=== PATIENT | male | born 1995 | race African-American/Black ===

== ENCOUNTER 2019-01-12 20:33 | Emergency (ER) | payer OTHER, MEDICAID ==
[~2019-01-12] VITALS: Ht 182.9 cm; Wt 73.0 kg
[2019-01-12] MEDS ORDERED: KETOROLAC 60MG/2ML VIAL IM ONE (21:30)
[2019-01-12] MEDS ORDERED: MORPHINE SULFATE 10 MG/ML CPJ IM ONE (21:30)
[2019-01-12] MEDS ORDERED: ONDANSETRON 4MG ODT PO ONE (21:30)
[2019-01-13 01:43] VITALS: BP 134/86
== END 2019-01-13 02:21 | disposition short-term general hospital (02) ==
LOC: ER 20:33
DX: M25.532 Pain in left wrist (principal); F12.10 Cannabis abuse, uncomplicated; Z90.49 Acquired absence of other specified parts of digestive tract
CPT/HCPCS: 29125; 71045; 72170; 73110; 96372; 99285; J1885; J2270; Q0162; Z7610

== ENCOUNTER 2019-01-30 02:01 | Emergency (ER) | payer OTHER, MEDICAID ==
[~2019-01-30] VITALS: Ht 185.4 cm; Wt 78.0 kg
[2019-01-30] MEDS ORDERED: KETOROLAC 30MG/ML VIAL IV STA (02:56)
[2019-01-30] MEDS ORDERED: ONDANSETRON HCL 4MG/2ML INJ IV ONE (03:00)
[2019-01-30] MEDS ORDERED: LORAZEPAM 2MG/ML CPJ IV ONE (03:00)
[2019-01-30 03:42] LABS: HEMATOCRIT. 30.1 % (42.0-52.0); HEMOGLOBIN. 9.6 g/dL (14.0-18.0); MEAN CORPUSCULAR VOLUME 68.9 fL (80.0-94.0); MEAN PLATELET VOLUME 6.3 fl (7.4-10.4); PLATELET 854 x1000/uL (130-400); RED BLOOD CELL COUNT 4.37 mill/uL (4.7-6.1); RED CELL DISTRIBUTION WIDTH 17.8 % (11.6-14.6)
[2019-01-30 03:49] LABS: CHLORIDE 96 mEq/L (98-107)
[2019-01-30 03:53] LABS: ETHANOL BLOOD < 10 mg/dL
[2019-01-30 04:07] LABS: PLATELET ESTIMATE INCREASED
[2019-01-30] MEDS ORDERED: SODIUM CHLORIDE 0.9% 1,000 ML IV ONE (05:06)
[2019-01-30 05:36] LABS: CLARITY URINE CLEAR (CLEAR); COLOR URINE YELLOW (YELLOW); KETONES URINE NEGATIVE (NEGATIVE); LEUKOCYTE ESTERASE URINE NEGATIVE (NEGATIVE); NITRITE URINE NEGATIVE (NEGATIVE); OCCULT BLOOD URINE NEGATIVE (NEGATIVE); PH URINE 7.5 (4.5-8.0); PROTEIN URINE TRACE (NEGATIVE)
[2019-01-30 06:36] LABS: *AMPHETAMINES SCREEN URINE NEGATIVE (NEGATIVE); *BARBITURATES SCREEN URINE NEGATIVE (NEGATIVE); *COCAINE SCREEN URINE NEGATIVE (NEGATIVE)
[2019-01-30 06:37] LABS: *BENZODIAZEPINES SCREEN URINE NEGATIVE (NEGATIVE); CANNABINOID URINE SCREEN PRESUMTIVE POSITIVE (NEGATIVE); METHADONE URINE SCREEN NEGATIVE (NEGATIVE); OPIATES URINE SCREEN NEGATIVE (NEGATIVE); PHENCYCLIDINE URINE SCREEN NEGATIVE (NEGATIVE)
[2019-01-30] MEDS ORDERED: ONDANSETRON HCL 4MG/2ML INJ IV STA (07:11)
[2019-01-30] MEDS ORDERED: DIAZEPAM 5 MG/ML 2ML CPJ IV ONE (07:15)
[2019-01-30 09:35] VITALS: BP 139/99
== END 2019-01-30 09:55 | disposition home or self-care (01) ==
LOC: ER 02:01
DX: G89.29 Other chronic pain (principal); M54.5 Low back pain; F41.9 Anxiety disorder, unspecified; F12.10 Cannabis abuse, uncomplicated
CPT/HCPCS: 36415; 72100; 80053; 80305; 80307; 80320; 80329; 81003; 85025; 96374; 96375; 96376; 99284; J1885; J2060; J2405; J3360; J7030; G0480

== ENCOUNTER 2019-02-02 14:52 | Emergency (ER) | payer OTHER, MEDICAID ==
[~2019-02-02] VITALS: Ht 182.9 cm; Wt 75.0 kg
[2019-02-02] MEDS ORDERED: KETOROLAC 30MG/ML VIAL IV STA (16:21)
[2019-02-02] MEDS ORDERED: SODIUM CHLORIDE 0.9% 1,000 ML IV ONE (16:21)
[2019-02-02] MEDS ORDERED: LORAZEPAM 2MG/ML CPJ IV ONE (16:30)
[2019-02-02 16:48] LABS: HEMATOCRIT. 28.3 % (42.0-52.0); HEMOGLOBIN. 8.6 g/dL (14.0-18.0); MEAN CORPUSCULAR HEMOGLOBIN 20.9 pg (28.0-32.0); MEAN CORPUSCULAR VOLUME 68.6 fL (80.0-94.0); MEAN PLATELET VOLUME 6.3 fl (7.4-10.4); PLATELET 878 x1000/uL (130-400); RED BLOOD CELL COUNT 4.12 mill/uL (4.7-6.1)
[2019-02-02 16:55] LABS: CHLORIDE 99 mEq/L (98-107)
[2019-02-02 16:56] LABS: PARTIAL THROMBOPLASTIN TIME 26.8 sec (23.4-31.0); PROTHROMBIN TIME 10.6 sec (9.6-11.0)
[2019-02-02 17:01] LABS: ETHANOL BLOOD < 10 mg/dL
[2019-02-02 17:07] LABS: PLATELET ESTIMATE MARKEDLY INCREASED
[2019-02-02 18:08] LABS: CLARITY URINE CLOUDY (CLEAR); COLOR URINE YELLOW (YELLOW); KETONES URINE NEGATIVE (NEGATIVE); LEUKOCYTE ESTERASE URINE NEGATIVE (NEGATIVE); NITRITE URINE NEGATIVE (NEGATIVE); OCCULT BLOOD URINE NEGATIVE (NEGATIVE); PH URINE >=9.0 (4.5-8.0); PROTEIN URINE TRACE (NEGATIVE); SPECIFIC GRAVITY URINE 1.019 (1.005-1.030)
[2019-02-02 18:26] LABS: *AMPHETAMINES SCREEN URINE NEGATIVE (NEGATIVE); *BARBITURATES SCREEN URINE NEGATIVE (NEGATIVE); *BENZODIAZEPINES SCREEN URINE NEGATIVE (NEGATIVE); *COCAINE SCREEN URINE NEGATIVE (NEGATIVE); METHADONE URINE SCREEN NEGATIVE (NEGATIVE); OPIATES URINE SCREEN NEGATIVE (NEGATIVE)
[2019-02-02 18:27] LABS: CANNABINOID URINE SCREEN PRESUMTIVE POSITIVE (NEGATIVE); PHENCYCLIDINE URINE SCREEN NEGATIVE (NEGATIVE)
[2019-02-02 23:55] VITALS: BP 154/89
== END 2019-02-02 23:55 | disposition home or self-care (01) ==
LOC: ER 14:52
DX: R55 Syncope and collapse (principal); M54.9 Dorsalgia, unspecified; K59.00 Constipation, unspecified; M54.2 Cervicalgia; R30.0 Dysuria; J45.909 Unspecified asthma, uncomplicated; Z90.49 Acquired absence of other specified parts of digestive tract
CPT/HCPCS: 36415; 70450; 71045; 72100; 72125; 73090; 73110; 74176; 80053; 80305; 80320; 81003; 82962; 83690; 83880; 84484; 85025; 85610; 85730; 93005; 96361; 96374; 96375; 99284; J1885; J2060; J7030; G0480

== ENCOUNTER 2019-02-13 05:44 | Emergency (ER) | payer OTHER, MEDICAID ==
[~2019-02-13] VITALS: Ht 180.3 cm; Wt 73.0 kg
[2019-02-13] MEDS ORDERED: IBUPROFEN 600MG TABLET PO ONE (07:00)
[2019-02-13] MEDS ORDERED: CYCLOBENZAPRINE 10MG TABLET PO ONE (07:00)
[2019-02-13] MEDS ORDERED: DIAZEPAM 5 MG TABLET PO ONE (08:15)
[2019-02-13] MEDS ORDERED: MORPHINE SULFATE 10 MG/ML CPJ IM ONE (08:15)
[2019-02-13] MEDS ORDERED: MORPHINE SULFATE 4 MG/ML CPJ (NOT FOR IM USE) IV NR (08:45)
[2019-02-13] MEDS ORDERED: HYDROCODONE/ACETAMINOPHEN 10/325MG TABLET PO ONE (09:45)
[2019-02-13 10:37] LABS: CLARITY URINE TURBID (CLEAR); COLOR URINE YELLOW (YELLOW); KETONES URINE NEGATIVE (NEGATIVE); LEUKOCYTE ESTERASE URINE NEGATIVE (NEGATIVE); NITRITE URINE NEGATIVE (NEGATIVE); OCCULT BLOOD URINE NEGATIVE (NEGATIVE); PH URINE >=9.0 (4.5-8.0); PROTEIN URINE NEGATIVE (NEGATIVE)
[2019-02-13 12:55] VITALS: BP 130/75
== END 2019-02-13 13:16 | disposition home or self-care (01) ==
LOC: ER 05:44
DX: S30.0XXA Contusion of lower back and pelvis, initial encounter (principal); N50.3 Cyst of epididymis; G89.29 Other chronic pain; M54.5 Low back pain; J45.909 Unspecified asthma, uncomplicated; Z87.828 Personal history of other (healed) physical injury and trauma; Z74.01 Bed confinement status; W06.XXXA Fall from bed, initial encounter; Y93.89 Activity, other specified; Y92.013 Bedroom of single-family (private) house as the place of occurrence of the external cause
CPT/HCPCS: 72100; 76870; 93976; 99284; J2270

== ENCOUNTER 2019-02-15 01:52 | Emergency (ER) | payer OTHER, MEDICAID ==
[~2019-02-15] VITALS: Ht 180.3 cm; Wt 66.0 kg
[2019-02-15] MEDS ORDERED: KETOROLAC 60MG/2ML VIAL IM ONE (04:45)
[2019-02-15] MEDS ORDERED: ACETAMINOPHEN WITH CODEINE 300/30MG TABLET PO ONE (04:45)
[2019-02-15] MEDS ORDERED: TRAMADOL 50MG TABLET PO ONE (05:45)
[2019-02-15] MEDS ORDERED: ONDANSETRON 4MG ODT PO ONE (05:45)
[2019-02-15 09:08] VITALS: BP 125/68
== END 2019-02-15 09:09 | disposition home or self-care (01) ==
LOC: ER 01:52
DX: M54.5 Low back pain (principal); G89.29 Other chronic pain
CPT/HCPCS: 96372; 99284; J1885; Q0162

== ENCOUNTER 2019-02-25 00:01 | Emergency (ER) | payer OTHER, MEDICAID ==
[~2019-02-25] VITALS: Ht 182.9 cm; Wt 73.0 kg
[2019-02-25] MEDS ORDERED: ONDANSETRON HCL 4MG/2ML INJ IV STA (00:26)
[2019-02-25] MEDS ORDERED: MORPHINE SULFATE 4 MG/ML CPJ (NOT FOR IM USE) IV STA (00:26)
[2019-02-25] MEDS ORDERED: SODIUM CHLORIDE 0.9% 1,000 ML IV ONE (00:26)
[2019-02-25 00:51] LABS: HEMATOCRIT. 27.7 % (42.0-52.0); HEMOGLOBIN. 8.5 g/dL (14.0-18.0); MEAN CORPUSCULAR HEMOGLOBIN 20.3 pg (28.0-32.0); MEAN CORPUSCULAR VOLUME 65.8 fL (80.0-94.0); MEAN PLATELET VOLUME 6.4 fl (7.4-10.4)
[2019-02-25 00:53] LABS: CHLORIDE 103 mEq/L (98-107)
[2019-02-25 00:54] LABS: PROTHROMBIN TIME 10.7 sec (9.6-11.0)
[2019-02-25 00:57] LABS: PLATELET 1002 x1000/uL (130-400)
[2019-02-25 01:24] LABS: CLARITY URINE TURBID (CLEAR); COLOR URINE YELLOW (YELLOW); KETONES URINE NEGATIVE (NEGATIVE); LEUKOCYTE ESTERASE URINE NEGATIVE (NEGATIVE); NITRITE URINE NEGATIVE (NEGATIVE); OCCULT BLOOD URINE NEGATIVE (NEGATIVE); PH URINE >=9.0 (4.5-8.0); PROTEIN URINE TRACE (NEGATIVE); SPECIFIC GRAVITY URINE 1.022 (1.005-1.030)
[2019-02-25 04:15] VITALS: BP 129/93
[2019-02-25] MEDS ORDERED: MORPHINE SULFATE 4 MG/ML CPJ (NOT FOR IM USE) IV ONE (04:15)
[2019-02-25 05:00] LABS: PLATELET ESTIMATE INCREASED
== END 2019-02-25 05:06 | disposition short-term general hospital (02) ==
LOC: ER 00:12
DX: M54.5 Low back pain (principal); G89.29 Other chronic pain; D47.3 Essential (hemorrhagic) thrombocythemia; D50.9 Iron deficiency anemia, unspecified; J45.909 Unspecified asthma, uncomplicated; Z87.828 Personal history of other (healed) physical injury and trauma
CPT/HCPCS: 36415; 74177; 80053; 81003; 83605; 83690; 85025; 85610; 96361; 96374; 96375; 96376; 99285; J2270; J2405; J7030; Z7610

== ENCOUNTER 2024-03-15 21:05 | Emergency (ER) | payer MEDICAID, OTHER ==
[~2024-03-15] VITALS: Ht 180.3 cm; Wt 80.0 kg
[~2024-03-15 21:05] MED LIST: DULO20CA18 PO; RISP0.2514 PO
[2024-03-15 21:17] VITALS: O2SAT 99
[2024-03-15] MEDS: ONDANSETRON HCL 4MG/2ML INJ IV STA (23:27)
[2024-03-15] MEDS: MORPHINE SULFATE 4 MG/ML INJ (FOR IV/IM USE) IV STA (23:28)
[2024-03-15] MEDS: PANTOPRAZOLE SODIUM 40 MG/VIAL IV STA (23:28)
[2024-03-15] MEDS: SODIUM CHLORIDE 0.9% 1,000 ML IV ONE (23:29)
[2024-03-15 23:56] LABS: BASOPHILS % 0.8 % (0.0-2.0); CHLORIDE 104 mEq/L (98-107); EOSINOPHILS % 0.9 % (0.0-5.0); HEMATOCRIT. 40.8 % (42.0-52.0); LYMPHOCYTES % 25.3 % (20.0-50.0); MEAN CORPUSCULAR HEMOGLOBIN 33.5 pg (28.0-32.0); MEAN CORPUSCULAR HGB CONC 34.3 g/dL (31.0-37.0); MEAN CORPUSCULAR VOLUME 97.9 fL (80.0-94.0); MONOCYTES % 9.5 % (2.0-8.0); NEUTROPHILS % 63.5 % (40.0-76.0); PLATELET 327 x1000/uL (130-400); POTASSIUM 3.7 mEq/L (3.5-5.1); RED BLOOD CELL COUNT 4.16 mill/uL (4.7-6.1); RED CELL DISTRIBUTION WIDTH 13.9 % (11.6-14.6); SODIUM 137 mEq/L (136-145); WHITE BLOOD COUNT 7.6 x1000/uL (4.5-11.0)
[2024-03-15 23:57] LABS: CALCIUM 9.4 mg/dL (8.7-10.4); CARBON DIOXIDE 28 mEq/L (21-32)
[2024-03-16 00:02] LABS: GLUCOSE 93 mg/dL (70-105); UREA NITROGEN BLOOD 12 mg/dL (9-23)
[2024-03-16 00:04] LABS: ALANINE AMINOTRANSFERASE 20 IU/L (10-49); ALBUMIN 4.4 g/dL (3.2-4.8); ASPARTATE AMINOTRANSFERASE 21 IU/L (<34); BILIRUBIN DIRECT 0.4 mg/dL (<=3.0); PROTEIN TOTAL 6.9 g/dL (6.0-8.3)
[2024-03-16] MEDS: MORPHINE SULFATE 4 MG/ML INJ (FOR IV/IM USE) IV ONE (01:44)
[2024-03-16] MEDS: IOHEXOL-300 100 ML BOTTLE ONE (06:23)
[2024-03-16] MEDS ORDERED: ACETAMINOPHEN 325MG TABLET PO PRN (12:45)
[2024-03-16] MEDS ORDERED: CLONIDINE 0.1MG TABLET PO PRN (12:45)
[2024-03-16] MEDS: ONDANSETRON HCL 4MG/2ML INJ IV PRN (12:58)
[2024-03-16] MEDS: MORPHINE SULFATE 2 MG/ML INJ (NOT FOR IM USE) IV PRN (12:58)
[2024-03-16] MEDS: PANTOPRAZOLE SODIUM 40 MG/VIAL IV SCH (12:58)
[2024-03-16] MEDS: SODIUM CHLORIDE 0.9% 1,000 ML IV SCH (13:17)
[2024-03-16] MEDS: LEVOFLOXACIN 500MG PREMIX 100 ML IV SCH (14:40)
[2024-03-16] MEDS: ENOXAPARIN 40MG/0.4ML SYR SUBCUT SCH (16:28)
[2024-03-17 07:24] LABS: EOSINOPHILS % 1.9 % (0.0-5.0); HEMATOCRIT. 38.3 % (42.0-52.0); HEMOGLOBIN. 12.8 g/dL (14.0-18.0); LYMPHOCYTES % 37.9 % (20.0-50.0); MEAN CORPUSCULAR HEMOGLOBIN 32.7 pg (28.0-32.0); MEAN CORPUSCULAR HGB CONC 33.4 g/dL (31.0-37.0); MEAN PLATELET VOLUME 7.1 fl (7.4-10.4); MONOCYTES % 10.4 % (2.0-8.0); NEUTROPHILS % 48.8 % (40.0-76.0); PLATELET 296 x1000/uL (130-400); RED BLOOD CELL COUNT 3.91 mill/uL (4.7-6.1); RED CELL DISTRIBUTION WIDTH 13.5 % (11.6-14.6); WHITE BLOOD COUNT 4.9 x1000/uL (4.5-11.0)
[2024-03-17 07:30] LABS: CARBON DIOXIDE 26 mEq/L (21-32); CHLORIDE 107 mEq/L (98-107); SODIUM 138 mEq/L (136-145)
[2024-03-17 07:31] LABS: CALCIUM 8.6 mg/dL (8.7-10.4)
[2024-03-17 07:36] LABS: CREATININE 0.9 mg/dL (0.6-1.3); GLUCOSE 82 mg/dL (70-105)
[2024-03-17 07:50] LABS: UREA NITROGEN BLOOD < 5 mg/dL (9-23)
[2024-03-17] MEDS ORDERED: METR-167 MT (14:41)
[2024-03-17] MEDS ORDERED: FAMO-135 MT (14:41)
[2024-03-17] MEDS ORDERED: LEVO-65 MT (14:41)
[2024-03-17] MEDS ORDERED: NALOXONE HCL 0.4MG/ML VIAL IV PRN (17:30)
[2024-03-17 19:01] VITALS: BP 126/70; PULSE 66; RESP 12; TEMP 37.16964; O2SAT 99
[2024-03-18] MEDS ORDERED: LEVOFLOXACIN 500MG TABLET PO SCH (14:00)
== END 2024-03-17 20:00 | disposition admitted as inpatient to this hospital (09) ==
LOC: MERGE 21:05 → ER 21:05 → 5WST 03-16 04:43 → UNDOADMIN 03-16 04:43
DX: K52.9 Noninfective gastroenteritis and colitis, unspecified (principal); Z87.11 Personal history of peptic ulcer disease; Z90.49 Acquired absence of other specified parts of digestive tract
CPT/HCPCS: 80076; 80048 ×2; 83605; 83690; 85025 ×2; 36415 ×2; 96365; 96366; 96375; 99285; 74177; 96376 ×2; 96361; J2405 ×3; J2470 ×3; J2270 ×4; J7030; Z7610 ×3; Q9967; J1956; J1650 ×2; 96374